=== PATIENT | male | born 2000 | race Caucasian/White ===

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

== ENCOUNTER 2019-02-28 01:52 | Emergency (ER) | payer MEDICAID ==
[~2019-02-28] VITALS: Ht 172.7 cm; Wt 79.4 kg
[2019-02-28 01:58] VITALS: BP_SYST 135
--- NOTE | 2019-02-28 02:06 | NUR ---
Patient to ER bed 6 to gown for evaluation. Side rails up. Report given to PABLITO REYES.
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
--- NOTE | 2019-02-28 02:30 | NUR ---
ER at bedside examining patient.
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
[2019-02-28 02:35] VITALS: BP_SYST 135
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
--- NOTE | 2019-02-28 02:50 | NUR ---
Patient given written and verbal discharge instructions and verbalizes understanding. ER MD Dr. Jimenez discussed with patient the results and treatment provided. Patient in stable condition. ID arm band removed. Patient educated on pain management and to follow up with PMD. Pain Scale 0/10. Opportunity for questions provided and answered. Medication side effect fact sheet provided. Addendum: 02/28/19 at 0259 by [email or web address] Patient given written and verbal discharge instructions and verbalizes understanding. ER MD Dr. Jimenez discussed with patient the results and treatment provided. Patient in stable condition. ID arm band removed. Patient educated on pain management and to follow up with PMD. Pain Scale 03/10, tolerable for pt. Pt able to ambulate with steady gait out of ER. Opportunity for questions provided and answered. Medication side effect fact sheet provided.
== END 2019-02-28 02:50 | disposition home or self-care (01) ==
LOC: SED 01:52
DX: S09.90XA Unspecified injury of head, initial encounter (principal); F17.210 Nicotine dependence, cigarettes, uncomplicated; Z71.6 Tobacco abuse counseling; Y04.0XXA Assault by unarmed brawl or fight, initial encounter; Y93.89 Activity, other specified; Y92.481 Parking lot as the place of occurrence of the external cause; Y99.8 Other external cause status
CPT/HCPCS: 99281

== ENCOUNTER 2021-04-12 00:02 | Emergency (ER) | payer MEDICAID, SELFPAY ==
[~2021-04-12] VITALS: Ht 172.7 cm; Wt 90.7 kg
[2021-04-12 00:12] VITALS: BP_SYST 127
[2021-04-12] MEDS ORDERED: LORazepam 2 MG/ML VIAL ONE (01:15)
[2021-04-12 03:42] LABS: BASOPHILS # (AUTO) 0.2 K/uL (0.0-0.2); BASOPHILS % (AUTO) 1.8 % (0.0-2.0); EOSINOPHILS # (AUTO) 2.4 K/uL (0.0-0.4); EOSINOPHILS % (AUTO) 21.8 % (0.0-4.0); HEMATOCRIT 43.4 % (36-54); HEMOGLOBIN 14.4 g/dL (14.0-18.0); LYMPHOCYTES # (AUTO) 2.7 K/uL (1.0-5.5); LYMPHOCYTES % (AUTO) 24.4 % (20.5-51.5); MEAN CORPUSCULAR HEMOGLOBIN 29 pg (27-31); MEAN CORPUSCULAR HGB CONC 33 % (32-36); MEAN CORPUSCULAR VOLUME 87 fL (79.0-98.0); MONOCYTES # (AUTO) 0.8 K/uL (0.0-1.0); MONOCYTES % (AUTO) 7.5 % (1.7-9.3); NEUTROPHILS % (AUTO) 44.5 % (40.0-70.0); PLATELET COUNT (AUTO) 285 K/uL (130-430); RED BLOOD CELL COUNT(AUTO) 4.97 MIL/uL (4.2-6.2); RED CELL DISTRIBUTION WIDTH 13.4 % (9.0-15.0); WHITE BLOOD COUNT (AUTO) 11.2 K/uL (4.8-10.8)
[2021-04-12] MEDS ORDERED: MORPHINE 4 MG INJ. 4 MG/ML VIAL IVP ONE (03:45)
[2021-04-12] MEDS ORDERED: ACETAMINOPHEN 325 MG TABLET ONE (03:54)
[2021-04-12 03:55] LABS: CALCIUM 8.7 mg/dL (8.4-11.0); CREATININE 0.95 mg/dL (0.55-1.30); POTASSIUM 4.2 mmol/L (3.5-5.1)
[2021-04-12 03:59] LABS: PROTHROMBIN TIME 10.3 SECS (9.5-12.5)
[2021-04-12] MEDS ORDERED: ACETAMINOPHEN 325 MG TABLET PO ONE (04:00)
[2021-04-12 04:09] LABS: ALBUMIN 3.2 g/dL (3.4-4.8); TOTAL BILIRUBIN 0.3 mg/dL (0.0-1.0)
[2021-04-12] MEDS ORDERED: RIVAROXABAN 15 MG TABLET PO ONE (05:00)
[2021-04-12] MEDS ORDERED: RIVA15TA PO (05:11)
[2021-04-12] MEDS ORDERED: RIVAROXABAN 10 MG TABLET ONE (05:13)
[2021-04-12] MEDS ORDERED: ACET1TAB23 PO (05:22)
[2021-04-12 05:30] VITALS: BP_SYST 127
[2021-04-12] MEDS ORDERED: LIDOCAINE PF 1% 30ML(POUR BTL) INJ ONE (12:56)
== END 2021-04-12 05:30 | disposition home or self-care (01) ==
LOC: SED 00:02
DX: I82.442 Acute embolism and thrombosis of left tibial vein (principal); Z79.899 Other long term (current) drug therapy; Z20.822 Contact with and (suspected) exposure to COVID-19
CPT/HCPCS: 36415; 73564; 73590; 80053; 82550; 85025; 85610; 85730; 87426; 93971; 99285; J2060; J2001; J2270

== ENCOUNTER 2021-05-10 11:42 | Emergency (ER) | payer MEDICAID, SELFPAY ==
[~2021-05-10] VITALS: Ht 172.7 cm; Wt 81.6 kg
[~2021-05-10 11:42] MED LIST: ACET1TAB23 PO; RIVA15TA PO
[2021-05-10 11:54] VITALS: BP_SYST 112
[2021-05-10 12:11] LABS: BASOPHILS # (AUTO) 0.1 K/uL (0.0-0.2); EOSINOPHILS # (AUTO) 0.4 K/uL (0.0-0.4); EOSINOPHILS % (AUTO) 5.8 % (0.0-4.0); HEMATOCRIT 44.3 % (36-54); HEMOGLOBIN 15.3 g/dL (14.0-18.0); LYMPHOCYTES # (AUTO) 2.1 K/uL (1.0-5.5); LYMPHOCYTES % (AUTO) 31.6 % (20.5-51.5); MEAN CORPUSCULAR HEMOGLOBIN 30 pg (27-31); MEAN CORPUSCULAR HGB CONC 35 % (32-36); MEAN CORPUSCULAR VOLUME 87 fL (79.0-98.0); MONOCYTES # (AUTO) 0.5 K/uL (0.0-1.0); MONOCYTES % (AUTO) 7.3 % (1.7-9.3); NEUTROPHILS # (AUTO) 3.5 K/uL (1.8-7.7); NEUTROPHILS % (AUTO) 54.3 % (40.0-70.0); PLATELET COUNT (AUTO) 264 K/uL (130-430); RED BLOOD CELL COUNT(AUTO) 5.13 MIL/uL (4.2-6.2); RED CELL DISTRIBUTION WIDTH 13.7 % (9.0-15.0); WHITE BLOOD COUNT (AUTO) 6.5 K/uL (4.8-10.8)
[2021-05-10] MEDS ORDERED: IOHEXOL 350 mgI/mL, 150 ML INFUS..BTL IV ONE (12:21)
[2021-05-10 12:24] LABS: CALCIUM 8.9 mg/dL (8.4-11.0); CREATININE 0.92 mg/dL (0.55-1.30); POTASSIUM 4.1 mmol/L (3.5-5.1)
[2021-05-10 12:30] LABS: ALBUMIN 3.4 g/dL (3.4-4.8); TOTAL BILIRUBIN 0.7 mg/dL (0.0-1.0)
[2021-05-10] MEDS: NACL 0.9% 1,000 ML IV ONE (12:51)
[2021-05-10] MEDS: KETOROLAC TROMETHAMINE 30 MG VIAL IVP ONE (13:35)
[2021-05-10 13:55] VITALS: BP_SYST 112
== END 2021-05-10 13:56 | disposition home or self-care (01) ==
LOC: SED 11:42
DX: R06.02 Shortness of breath (principal); F41.9 Anxiety disorder, unspecified; R06.4 Hyperventilation; I82.402 Acute embolism and thrombosis of unspecified deep veins of left lower extremity; Z79.899 Other long term (current) drug therapy
CPT/HCPCS: 36415; 36600; 71045; 71275; 76376; 80053; 80061; 82803; 83880; 84484; 85025; 85379; 93005; 96361; 96374; 99285; J1885; J7030; Q9967